=== PATIENT | male | born 1980 | race American Indian/Alaskan Native ===

== ENCOUNTER 2018-03-15 08:57 | Emergency (ER) | payer OTHER ==
[2018-03-15 09:02] VITALS: BP 129/78
[2018-03-15] MEDS ORDERED: MOTRIN PO ONE (10:07)
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
== END 2018-03-15 12:22 | disposition home or self-care (01) ==
LOC: ED 08:57
DX: M62.830 Muscle spasm of back (principal); M25.562 Pain in left knee; V49.19XA Passenger injured in collision with other motor vehicles in nontraffic accident, initial encounter; Y93.89 Activity, other specified; Y99.8 Other external cause status; Y92.488 Other paved roadways as the place of occurrence of the external cause
CPT/HCPCS: 72100